=== PATIENT | male | born 1950 | race Caucasian/White ===

== ENCOUNTER 2016-03-30 17:06 | Emergency (ER) | payer MEDICARE ==
[2016-03-30 17:36] VITALS: BP 118/71
--- NOTE | 2016-03-31 00:33 | Diagnostic Imaging Report ---
[facility] [address] [facility].[address] [address] ~ ~ ~ ~ Report Submission Date: Mar 30, 2016 5:54:10 PM CNA HHA Patient ~ Study Name: KIRA WATSON ~ Date: Mar 30, 2016 5:28:30 PM CNA HHA ~ Modality Type: CR Gender: M ~ Description: LOWER EXTREMITY : 54 ~ Institution: [facility] Physician: JHONY RODNEY ~ ~ ~ ~ Right foot 3 views Clinical history: Trauma with pain at the 3rd toe No visible fractures, dislocation or bone destruction. Impression: Normal right foot ~ Electronically signed on Mar 30, 2016 5:54:10 PM CNA HHA by: Osiel LOYD
--- NOTE | 2016-03-31 03:03 | ED Physician Documentation ---
Foot Injury - HISTORIAN Historian: patient - HPI Stated Complaint: Injured 3rd digit of Rt foot last night Chief Complaint: Foot Injury Additional Information: stubbed right 3rd toe yesterday Onset: days ago (1) Where: home Severity: moderate Context: direct blow Associated Symptoms:: other (pain) Modifying Factors:: other (pain with pressure on tip) Further Comments: no - ROS CONST: no problems CVS/RESP: none NEURO: denies: headache, head injury, dizziness GI/: denies: problems urinating, nausea, vomiting MS/SKIN/LYMPH: none - PAST HX Past History: other (copd) Immunizations: referred to PCP Allergies/Adverse Reactions: Allergies Allergy/AdvReac Type Severity Reaction Status Date / Time No Known Drug Allergies Allergy Verified 03/30/16 17:37 - SOCIAL HX Smoking History: cigarettes Alcohol Use: none Drug Use: none - FAMILY HX Family History: no significant history - VITAL SIGNS Vital Signs: Vital Signs Temp Pulse Resp BP Pulse Ox 73 18 118/71 99 03/30/16 18:17 03/30/16 18:17 03/30/16 18:17 03/30/16 17:07 - REVIEWED ASSESSMENTS Nursing Assessment Reviewed: Yes Vitals Reviewed: Yes Progress - Results/Orders Results/Orders: x-rays taken right foot - Progress Progress: pt's nails trimmed Critical Care Note - Critical Care Note Total Time (mins): 0 ED Results Lab/Radiology - Lab Results Lab Results: none ordered - Radiology Radiology Impressions: x-ray right foot - Orders Orders: ED Orders Category Date Time Status FOOT 3 VIEWS OR MORE [RAD] Stat Exams 03/30/16 Completed Foot Injury Physical Exam - Physical Exam General Appearance: mild distress Foot: right foot: soft tissue tenderness (3rd toe) Ankle: right: non-tender, normal inspection, normal range of motion, no evidence of injury Gait: limited by pain Neuro: sensation nml, motor nml Vascular: no vascular compromise Tendons: tendon function nml, tendon visualized Leg/Knee/Thigh: uninjured above ankle Skin: intact, warm Head/ENT: nml inspection, pharynx nml Neck/Back: nml inspection, non-tender Resp/CVS: chest non-tender, breath sounds nml, heart sounds nml, no resp. distress, lungs clear Abdomen: non-tender, pelvis stable. No: tenderness, guarding, mass Discharge Clincal Impression: Contusion, toe Qualifiers: Encounter type: initial encounter Toe: lesser toe Damage to nail status: without damage Laterality: right Qualified Code(s): S90.121A - Contusion of right lesser toe(s) without damage to nail, initial encounter Referrals: Osiel Willoughby MD [Primary Care Provider] - 2 Days Comments: discharged without scripts Condition: Stable Disposition: 01 HOME, SELF-CARE Decision to Admit: NO Decision Time: 18:10
== END 2016-03-30 18:05 | disposition home or self-care (01) ==
LOC: ED 17:06
DX: S90.121A Contusion of right lesser toe(s) without damage to nail, initial encounter (principal); X58.XXXA Exposure to other specified factors, initial encounter; Y93.9 Activity, unspecified; Y99.9 Unspecified external cause status; M79.674 Pain in right toe(s)
CPT/HCPCS: 73630; 99283

== ENCOUNTER 2016-08-27 12:13 | Observation (INO) | payer MEDICARE, OTHER ==
[2016-08-27] MEDS ORDERED: ALBUTEROL SULFATE 2.5 MG/3 ML AMPUL.NEB NEB ONE (12:19)
[2016-08-27 12:44] LABS: BASOPHILS % 0.3 (0.0-1.5); EOSINOPHILS % 0.4 % (0.0-6.8); MEAN CORPUSCULAR HEMOGLOBIN 30.7 pg (28.0-34.0); MEAN CORPUSCULAR VOLUME 86.4 fl (80.0-100.0); MONOCYTES % 4.7 % (0.0-11.0); NEUTROPHILS # 10.7 # k/uL (1.4-7.7)
[2016-08-27 12:59] LABS: eGFR (African) > 60; eGFR (Non-African) > 60
--- NOTE | 2016-08-27 13:10 | Diagnostic Imaging Report ---
[facility] [address] [facility] [address] [place], [place]. [address] Report Submission Date: Aug 27, 2016 12:55:34 PM CDT Patient Study Name: KIRA WATSON Date: Aug 27, 2016 12:26:44 PM CDT Modality Type: CR Gender: M Description: CHEST : 54 Institution: [facility] Physician: JUAN C DUEÑAS (FIRST FRONT VENTILATOR) - ER Chest -two views CLINICAL HISTORY: Cough and dyspnea. FINDINGS: Examination of the chest in PA and lateral views with no prior film for comparison demonstrates lungs to be hyperinflated but clear. Cardiac silhouette is within normal limits. There is prominence of the central pulmonary arteries. Rule out pulmonary arterial hypertension. IMPRESSION: Hyperinflation. Prominence of central pulmonary arteries. Rule out pulmonary arterial hypertension. Electronically signed on Aug 27, 2016 12:55:34 PM CDT by: Tian LOYD
[2016-08-27] MEDS ORDERED: LEVOFLOXACIN 250MG/D5W 50ML 250 MG in PREMIX BAG 1 BAG IV ONE (13:51)
[2016-08-27] MEDS ORDERED: LEVOFLOXACIN 500MG/D5W 100ML 500 MG in PREMIX BAG 1 BAG IV ONE (13:51)
[2016-08-27] MEDS ORDERED: LEVOFLOXACIN 500MG/D5W 100ML 100 ML IV ONE (13:52)
[2016-08-27] MEDS ORDERED: LEVOFLOXACIN 250MG/D5W 50ML 50 ML IV ONE (13:52)
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
[2016-08-27] MEDS ORDERED: POTASSIUM CHLORIDE 20 MEQ TABLET.ER PO ONE (14:02)
[2016-08-27] MEDS ORDERED: ACETAMINOPHEN 500 MG TABLET PO ONE (14:03)
[2016-08-27] MEDS ORDERED: 0.9 % SODIUM CHLORIDE 1,000 ML IV ONE ×2 (14:05→14:06)
[2016-08-27 15:01] VITALS: BMI 22.4
[2016-08-27] MEDS: 0.9 % SODIUM CHLORIDE 1,000 ML IV SCH (15:41)
[2016-08-27 17:55] LABS: APPEARANCE,URINE Clear (CLEAR); COLOR,URINE Amber (YELLOW); OCCULT BLOOD,URINE 2+ (NEGATIVE)
[2016-08-27] MEDS: IPRATROPIUM/ALBUTEROL SULFATE 3 ML AMPUL.NEB NEB SCH (18:19)
[2016-08-27] MEDS ORDERED: ENOXAPARIN SODIUM 100 MG/ML DISP.SYRIN SQ ONE (19:20)
[2016-08-27] MEDS ORDERED: SALINE FLUSH 10 ML DISP.SYRIN IVF ONE (19:29)
[2016-08-27] MEDS ORDERED: ENOXAPARIN SODIUM 30 MG/0.3 ML DISP.SYRIN SQ ONE (20:10)
[2016-08-27] MEDS: POTASSIUM CHLORIDE 10 MEQ TABLET.ER PO SCH (20:11)
[2016-08-28] MEDS: IPRATROPIUM/ALBUTEROL SULFATE 3 ML AMPUL.NEB NEB SCH ×4 (01:17→16:07)
[2016-08-28] MEDS: 0.9 % SODIUM CHLORIDE 1,000 ML IV SCH ×3 (02:02→22:56)
[2016-08-28 06:12] LABS: EOSINOPHILS % 0.5 % (0.0-6.8)
[2016-08-28 06:38] LABS: BASOPHILS % 0.5 (0.0-1.5); MEAN CORPUSCULAR HEMOGLOBIN 29.3 pg (28.0-34.0); MEAN CORPUSCULAR VOLUME 88.1 fl (80.0-100.0); MONOCYTES % 4.8 % (0.0-11.0); NEUTROPHILS # 5.3 # k/uL (1.4-7.7); eGFR (African) > 60; eGFR (Non-African) > 60
[2016-08-28] MEDS ORDERED: POTASSIUM CHLORIDE 20 MEQ TABLET.ER PO ONE (07:05)
[2016-08-28] MEDS ORDERED: LEVOFLOXACIN 500MG/D5W 100ML 100 ML IV ONE (09:05)
[2016-08-28] MEDS ORDERED: LEVOFLOXACIN 250MG/D5W 50ML 50 ML IV ONE (09:06)
[2016-08-28] MEDS: LEVOFLOXACIN 500MG/D5W 100ML 500 MG in PREMIX BAG 1 BAG IV SCH (09:11)
[2016-08-28] MEDS: POTASSIUM CHLORIDE 10 MEQ TABLET.ER PO SCH ×2 (09:13→20:03)
[2016-08-28] MEDS: LEVOFLOXACIN 250MG/D5W 50ML 250 MG in PREMIX BAG 1 BAG IV SCH (10:17)
[2016-08-29] MEDS: IPRATROPIUM/ALBUTEROL SULFATE 3 ML AMPUL.NEB NEB SCH ×2 (02:51→05:52)
[2016-08-29] MEDS ORDERED: SALINE FLUSH 10 ML DISP.SYRIN IVF ONE (08:12)
[2016-08-29] MEDS: 0.9 % SODIUM CHLORIDE 1,000 ML IV SCH (08:26)
[2016-08-29] MEDS: POTASSIUM CHLORIDE 10 MEQ TABLET.ER PO SCH (08:27)
[2016-08-29] MEDS ORDERED: LEVOFLOXACIN 500MG/D5W 100ML 100 ML IV ONE (08:31)
[2016-08-29] MEDS ORDERED: LEVOFLOXACIN 250MG/D5W 50ML 50 ML IV ONE (08:31)
[2016-08-29] MEDS: LEVOFLOXACIN 250MG/D5W 50ML 250 MG in PREMIX BAG 1 BAG IV SCH (08:33)
[2016-08-29] MEDS: LEVOFLOXACIN 500MG/D5W 100ML 500 MG in PREMIX BAG 1 BAG IV SCH (09:50)
[2016-08-29 11:56] VITALS: BP 101/62
== END 2016-08-29 11:25 | disposition home or self-care (01) ==
LOC: ED 12:13 → SOUTH 14:07
PROVIDERS: ADMIT Family Medicine; ATTEND Family Medicine
DX: J18.9 Pneumonia, unspecified organism (principal)
CPT/HCPCS: 71020; 80053; 81002; 84484; 85025; 87040; 87070; 87086; 87186; 93005; 94640; 94760; 96361; 96365; 96366; 96375; 96376; 99284; A9270; G0378; J1650; J1956; J7030; S1016

== ENCOUNTER 2017-12-16 04:30 | Emergency (ER) | payer MEDICARE, OTHER ==
[2017-12-16] MEDS ORDERED: ASPIRIN 81 MG CHEW TAB PO ONE (04:43)
--- NOTE | 2017-12-16 04:43 | ED Physician Documentation ---
Chest Pain - HISTORIAN Historian: patient - HPI Stated Complaint: chest pain Chief Complaint: Chest Pain Onset: hours (2) Timing: sudden onset Duration: constant Last known Well Date: 12/16/17 Last Known Well Time: 05:00 Last known Well Code/Unknown Code: Unknown Context: rest Severity: mild Quality: stabbing Chest Pain Radiation: other (he says it goes through his back to left arm ) Chest Pain Signs/Symptoms: dyspnea. denies: nausea, vomiting, diaphoresis, cool extremities, dizziness, tachypnea, tachycardia, hypotension, palpitations, weakness Worsened By: deep breaths Relieved By: nothing Further Comments: yes (chest pain that he feels started a few days ago. He states that he started to feel uncomfortable last night and did not sleep much. He states the pain is a sharp stabbing pain in his middle back that is from the chest. He also has left arm/shoulder pain but he is not sure if that is the same. Denies any shortness of air or feeling like he is sweating. No nausea . He is a smoker and he has been coughing) - ROS CONST: none GI/: denies: abdominal pain, problems urinating, vomiting, nausea SKIN/ENDO: denies: rash NEURO/PSYCH: denies: headache, fainting, anxiety - PAST HX [place] risk factors: other (COPD out of meds ) TAD/AAA risk factors: none Neuro deficit: none GI disease: none Lung disease: COPD Immunizations: UTD Allergies/Adverse Reactions: Allergies Allergy/AdvReac Type Severity Reaction Status Date / Time No Known Drug Allergies Allergy Verified 12/16/17 04:54 Home Medications: Ambulatory Orders Medication Instructions Recorded Albuterol Sulfate [Proair HFA] 1 inh IH Q4 PRN #1 [email or web address] 08/28/16 - SOCIAL HX Smoking History: cigarettes Alcohol Use: none Drug Use: none - FAMILY HX Family HX: none - VITAL SIGNS Vital Signs: Vital Signs Temp Pulse Resp BP Pulse Ox 101/62 08/29/16 10:26 - REVIEWED ASSESSMENTS Nursing Assessment Reviewed: Yes Vitals Reviewed: Yes Progress - Progress Progress: 0550: tolerated procedure well family at bedside DG 0600: discussed lab and xray results. Plan for discharge. Needs a follow up with PCP for med orders DG 0630: improved inspiratory volume. mild wheeze. He reports chest pain is improved DG ED Results Lab/Radiology - Radiology Radiology Impressions: Chest, 2 view History: CHEST PAIN X2 HOURS Findings: The heart size is normal. The lungs are clear. There is no pleural effusion or pneumothorax identified. The osseous structures are normal. Impression: 1. No acute pulmonary disease. Electronically signed on Dec 16, 2017 5:22:21 AM CDT by: Jimmy Gongora Chest Pain Physical Exam - EXAM General Appearance: no acute distress, alert EENT: eye inspection normal, ENT inspection normal, dry mucous membranes Neck: nml inspection Respiratory: no resp. distress, chest non-tender, nml breath sounds, resp.distress CVS: reg. rate & rhythm Abdomen: soft, normal bowel sounds, no distension Skin: warm/dry, normal color Extremities: non-tender, normal range of motion, no evidence of injury, no edema Neuro: oriented X3 Discharge Clincal Impression: Chest pain Qualifiers: Chest pain type: other chest pain Qualified Code(s): R07.89 - Other chest pain Referrals: Osiel Willoughby MD [Primary Care Provider] - 2 Days Comments: 1. Medrol dose pack as directed start tomorrow am 2. ProAir 90mcg take 2 puffs by mouth every 4-6 hours as needed for cough 3. See PCP in 2-4 days for follow up and med adjustment 4. Return to ER for any concerns STOP SMOKING Condition: Stable Disposition: 01 HOME, SELF-CARE Decision to Admit: NO Date of Decison to Admit: 12/16/17 Decision Time: 06:54
[2017-12-16] MEDS ORDERED: ASPIRIN 81 MG CHEW TAB ONE (04:44)
[2017-12-16] MEDS ORDERED: IPRATROPIUM/ALBUTEROL SULFATE 3 ML AMPUL.NEB NEB ONE (05:18)
[2017-12-16] MEDS ORDERED: 0.9 % SODIUM CHLORIDE 1,000 ML IV ONE (05:18)
[2017-12-16 05:30] LABS: eGFR (Non-African) > 60
[2017-12-16] MEDS ORDERED: methylPREDNISolone SOD SUCC 125 MG/2 ML VIAL IVP ONE (05:51)
[2017-12-16] MEDS ORDERED: BUDESONIDE 0.5MG/2ML AMPUL.NEB NEB ONE (06:14)
--- NOTE | 2017-12-16 06:54 | Diagnostic Imaging Report ---
DIANA MESSINA [facility] [address] [facility] [address] [address] Report Submission Date: Dec 16, 2017 5:22:21 AM CDT Patient Study Name: KIRA WATSON Date: Dec 16, 2017 4:57:40 AM CDT Modality Type: DX Gender: M Description: CHEST : 54 Institution: [facility] Physician: DIANA MESSINA Chest, 2 view History: CHEST PAIN X2 HOURS Findings: The heart size is normal. The lungs are clear. There is no pleural effusion or pneumothorax identified. The osseous structures are normal. Impression: 1. No acute pulmonary disease. Electronically signed on Dec 16, 2017 5:22:21 AM CDT by: Jimmy LOYD
[2017-12-16 07:11] VITALS: BP 114/50
[2017-12-16 07:41] LABS: BASO % 0.8 % (0.0-1.5); EOS % 5.3 % (0.0-6.8); LYMPH ABS # 2.26 thou/uL (0.60-4.00); MCH. 30.3 pg (28.0-34.0); MCV 88.8 fL (80.0-100.0); MONOCYTE % 6.6 % (0.0-11.0); MONOCYTE ABS # 0.42 thou/uL (0.00-0.90); PLATELET COUNT 294 thou/uL (130-400)
[2017-12-16] MEDS ORDERED: BUDESONIDE 0.5MG/2ML AMPUL.NEB NEB SCH (09:00)
== END 2017-12-16 07:00 | disposition home or self-care (01) ==
LOC: ED 04:30
DX: R07.89 Other chest pain (principal)
CPT/HCPCS: 71046; 80053; 82550; 83880; 84484; 85025; 93005; J2930; J7030; J7626; 94640; 96365; 96375; 99284; S1016

== ENCOUNTER 2019-02-27 15:09 | Emergency (ER) | payer MEDICARE, OTHER ==
--- NOTE | 2019-02-27 15:24 | ED Physician Documentation ---
General Adult - HISTORIAN Historian: patient - HPI Stated Complaint: right upper chest pain after a fall two weeks ago Chief Complaint: Chest Pain Onset: days ago (14) Timing: still present Severity: mild Further Comments: yes (he fell two weeks ago and he hit the coffee table to the right upper chest and he has had pain but it is increasing pain. He is able to take a deep breath. He is a heavy smoker no fever. No shortness of breath. He has taken OTC meds with mild relief) - ROS CONST: no problems CVS/RESP: chest pain. denies: shortness of breath, cough GI/: none MS/SKIN/LYMPH: none NEURO/PSYCH: denies: headache, fainting, dizziness, tingling, numbness, difficulty walking, difficulty with speech, anxiety, depression - PAST HX Past History: COPD Immunizations: UTD Allergies/Adverse Reactions: Allergies Allergy/AdvReac Type Severity Reaction Status Date / Time No Known Drug Allergies Allergy Verified 12/16/17 04:54 Home Medications: Ambulatory Orders Medication Instructions Recorded Albuterol Sulfate [Proair HFA] 1 inh IH Q4 PRN #1 hfa.aer.[email or web address] 08/28/16 - SOCIAL HX Smoking History: cigarettes Alcohol Use: none Drug Use: none - FAMILY HX Family History: No - VITAL SIGNS Vital Signs: Vital Signs Temp Pulse Resp BP Pulse Ox 114/50 12/16/17 07:07 - REVIEWED ASSESSMENTS Nursing Assessment Reviewed: Yes Vitals Reviewed: Yes General Adult Physical Exam - PHYSICAL EXAM GENERAL APPEARANCE: no distress EENT: eye inspection normal, pharynx normal, no signs of dehydration NECK: normal inspection RESPIRATORY: no resp distress, breath sounds normal, wheezes, other (HE has yellow/green bruise on right upper chest near axilla . Pain with palpation. ) CVS: reg rate & rhythm, heart sounds normal ABDOMEN: soft, non-tender BACK: normal inspection SKIN: warm/dry, normal color EXTREMITIES: non-tender NEURO: oriented X3 Discharge Clincal Impression: Fall Qualifiers: Encounter type: initial encounter Qualified Code(s): W19.XXXA - Unspecified fall, initial encounter Referrals: Osiel Willoughby MD [Primary Care Provider] - 2 Days Comments: 1. Ibuprofen 800 mg take 1 by mouth every 12 hours as needed for pain 2. Flexeril 10 mg take 1 by mouth every 8 hours as needed for pain 3. Increase fluids 4. Follow up with PCP in 2 -4 days 5. Return to ER for any increased concerns Condition: Stable Disposition: 01 HOME, SELF-CARE Decision to Admit: NO Date of Decison to Admit: 02/27/19 Decision Time: 16:22
--- NOTE | 2019-02-27 16:07 | Diagnostic Imaging Report ---
PATIENT MR#: [id number] PATIENT PATIENT NAME: KIRA WATSON DATE OF : 1950 REFERRING PHYSICIAN: Jami Christensen EXAM DATE: 02/27/2019 ACCESSION NUMBER: [id number] EXAM DESCRIPTION: CHEST 2VIEW Exam: Chest two views. History: Right chest pain. The examination is compared to study dated December 16, 2017. Lung cerrato are well aerated without you consolidation or effusion. Heart and mediastinal contour are normal. No bony abnormalities are identified. Impression: No you consolidation or effusion. Read by: Dr. Kurtis Beauchamp Transcribed by: Transcribed Date: Electronically signed by: Dr. Kurtis Beauchamp Date signed: 02/27/2019 4:07:01 PM
--- NOTE | 2019-02-27 16:07 | Diagnostic Imaging Report ---
PATIENT MR#: [id number] PATIENT PATIENT NAME: KIRA WATSON DATE OF : 1950 REFERRING PHYSICIAN: Jami Christensen EXAM DATE: 02/27/2019 ACCESSION NUMBER: [id number] EXAM DESCRIPTION: RIBS UNILAT 2 VIEWS Exam: Right ribs. History: Fall. AP and oblique views of the right hemithorax are submitted. The bony elements of the right hemithorax are grossly intact. No pleural or periosteal reaction is s een. No pneumothorax is identified. Impression: No bony abnormality. Read by: Dr. Kurtis Beauchamp Transcribed by: Transcribed Date: Electronically signed by: Dr. Kurtis Beauchamp Date signed: 02/27/2019 4:07:01 PM
[2019-02-27] MEDS: KETOROLAC TROMETHAMINE 30 MG/1ML VIAL IM ONE (16:21)
[2019-02-27] MEDS: CYCLOBENZAPRINE HCL 10 MG TABLET PO ONE (16:21)
[2019-02-27 16:23] VITALS: BP 119/61
== END 2019-02-27 16:31 | disposition home or self-care (01) ==
LOC: ED 15:09
DX: R07.9 Chest pain, unspecified (principal)
CPT/HCPCS: J1885